=== PATIENT | female | born 1950 | race Caucasian/White ===

== ENCOUNTER 2016-10-22 07:26 | Emergency (ER) | payer OTHER ==
[~2016-10-22] VITALS: Wt 64.0 kg
[~2016-10-22 07:26] MED LIST: 'PARAFON FORTE500 M1 PO; ANTIBIOTIC O500 U/GM TP; CLARITIN10 MG PO; HYDROCHLOROTHIA25 MG PO; HYDROCODONE BIT1 T11 PO; KEFLEX500 MG PO; LOPRESSOR25 MG PO; MEDROL DOSEPAK4 MG PO; NADOLOL40 MG PO; NAPROSYN500 MG PO; NOVOLIN 701 UNIT/0.0 SC; NOVOLIN 70100 UNIT/1 SC; OMEPRAZOLE20 MG PO; ULTRAM50 MG PO; VICODIN 5/500 505 MG PO
[2016-10-22 07:45] LABS: BASO % 0.7 % (0.0-1.0); EOS % 1.4 % (1.0-4.0); HEMATOCRIT 35.4 % (37.0-47.0); HEMOGLOBIN 11.8 g/dl (12.0-16.0); LYMPH # 0.6 10*3/uL (1.3-4.4); LYMPH % 21.4 % (27.0-41.0); MEAN CELL VOLUME 99.7 fl (81.0-99.0); MEAN CORPUSCULAR HGB 33.2 pg (27.0-31.0); MEAN CORPUSCULAR HGB CONC 33.3 g/dl (33.0-37.0); MEAN PLATELET VOLUME 12.3 fl (9.6-12.3); MONO # 0.3 10*3/uL (0.1-1.0); MONO % 8.8 % (3.0-9.0); NEUT # 1.9 10*3/uL (2.3-7.9); PLATELET COUNT AUTOMATED 55 10*3/uL (130-400); RED BLOOD COUNT 3.55 10*6/uL (4.10-5.10); RED CELL DISTRI WIDTH 13.9 % (0-14.5); WHITE BLOOD COUNT 2.9 10*3/uL (4.8-10.8)
[2016-10-22 07:57] LABS: INTERNATIONAL NORM RATIO 1.2 (2.0-3.5); PROTHROMBIN TIME 13.4 SECONDS (9.0-12.4)
[2016-10-22 08:00] LABS: ALBUMIN 2.3 gm/dl (3.1-4.5); ALKALINE PHOSPHATASE 227 U/L (45-117); BILIRUBIN, TOTAL 0.9 mg/dl (0.2-1.0); BUN 12 mg/dl (7-24); CARBON DIOXIDE 27 mmol/L (21-32); CHLORIDE 105 mmol/L (98-107); EST GLOM FILT AFRICAN AMERICAN > 60 ml/min; GLUCOSE 214 mg/dL (65-99); POTASSIUM 3.5 mmol/L (3.5-5.1); SGOT/AST 103 IU/L (3-35); SGPT/ALT 53 U/L (12-78); SODIUM 141 mmol/L (136-145); TOTAL PROTEIN 7.7 gm/dL (6.4-8.2)
== END 2016-10-22 10:21 | disposition short-term general hospital (02) ==
LOC: ED 07:26
PROVIDERS: Emergency Medicine
DX: S72.141A Displaced intertrochanteric fracture of right femur, initial encounter for closed fracture (principal); S52.591A Other fractures of lower end of right radius, initial encounter for closed fracture; Z88.2 Allergy status to sulfonamides; Z79.899 Other long term (current) drug therapy; W01.0XXA Fall on same level from slipping, tripping and stumbling without subsequent striking against object, initial encounter; Y93.89 Activity, other specified; Y92.89 Other specified places as the place of occurrence of the external cause; Y99.8 Other external cause status

== ENCOUNTER → 2016-11-11 | Outpatient (CLI) | payer OTHER ==
[~2016-11-11] MED LIST changes: +BISACODYL10 MG RC; +DOCUSATE SODIU100 M2 PO; +GLYCOLAX119 GM PO; +HUMALOG100 U/ML SC; +HUMULIN 70100 UNIT/1 SQ; +LASIX40 MG PO; +MILK OF MA400 MG/51 PO; +NOVOLOG 70/30 M10 ML SC; +NOVOLOG MI100 UNIT/1 SQ; +OYSTERCAL-D 5001 TAB PO; +VITAMIN D1000 IU PO
[2016-11-11 15:15] VITALS: BP 109/31
[2016-11-11 15:30] VITALS: BP 105/47
[2016-11-11 15:45] VITALS: BP 104/50
[2016-11-11 16:00] VITALS: BP 102/46
[2016-11-11 16:16] VITALS: BP 114/51
[2016-11-11 17:15] VITALS: BP 108/54
== END | disposition home or self-care (01) ==
LOC: TRNFUSION 10:19 → SDC 10:19 → TRNFUSION 11:34 → EDSTATUS 11-17 11:34
DX: D64.9 Anemia, unspecified (principal)

== ENCOUNTER 2016-11-13 09:08 | Inpatient (IN) | payer OTHER ==
[~2016-11-13] VITALS: Ht 165.1 cm; Wt 73.1 kg
[2016-11-13] VITALS (15 sets, daily range): BP systolic 95–157; BP diastolic 37–74
--- NOTE | ~2016-11-13 | WRIGHTHP ---
[place], [place] PATIENT HISTORY AND PHYSICAL EXAM [id number] UN[facility] #: [id number] ROOM: [place] [address] DOCTOR: TONY CASTILLO MD BIRTHDATE: [birth year] DOS: 11/13/2016 The patient is a 65-year-old female with past medical of chronic hepatitis C with advanced liver cirrhosis and esophageal varices and 2 episodes of upper GI bleed in the last 7 years according to the patient. DIAGNOSES: 1. Recent fracture of the right wrist and right femur status post ORIF of the right femur. The patient was recuperating at the [place] [facility]. 2. History of benign essential hypertension. 3. Type 2 diabetes mellitus, insulin requiring. 4. History of thrombocytopenia and hepatitis C related to blood transfusion in 1972. HISTORY OF PRESENT ILLNESS: The patient was at the [place] [facility] recuperating from her right femur fracture status post ORIF and the right wrist fracture when she had episode of vomiting blood and was sent to the Emergency Department. After coming to the Emergency Department, the patient has had 2 episodes of dark stools with some blood in them. The patient was seen in the Emergency Department. The Emergency Department directly contacted Dr. Obando, the thread milling machine set up operator, who was in the operation room and he took patient directly from the Emergency Room to the operation room for an EGD where he found esophageal varices and upper GI bleed and distal esophageal ulcers, but he was unable to stop the bleeding and transferred the patient to ICU to admit under my care and 6 units of platelets were ordered by him and fresh frozen plasma along with packed cells. The patient had poor peripheral IV access and there was no one available at [facility] to place a central line for better IV access. The patient was moved to the ICU and she has received fresh frozen plasma as well as she is receiving the platelets and blood is still pending for the peripheral IV line. Stat consult was obtained with General Surgery surgeon, Dr. Keita who recommended that patient should be moved to a tertiary care center. A call was placed to [facility] who could not accept the patient because of patient's medical insurance. I placed a second call to [facility] who accepted the patient and planning to fly her to [facility] for further care. The patient is without chest pain, without shortness of breath. No other GI or urinary symptoms. Apparently, the patient was also started on Coumadin sometime earlier and her INR went as high as 8 and has gradually come down to 3.7, which was checked in the ER today. The patient's potassium level was also found to be low at 3.2 and ammonia level elevated at 59. Hemoglobin was 7.8 with a hematocrit of 24. The patient is awake, alert and oriented, not complaining of any chest pains, shortness of breath, any other GI or urinary symptoms. REVIEW OF SYSTEMS: LUNGS: No increasing shortness of breath or wheezing. GASTROINTESTINAL: The patient with history of vomiting blood and having also blood and dark colored stools recently. [place], [place] PATIENT HISTORY AND PHYSICAL EXAM NAME: MARINA LEÓN UNIT #: [id number] ROOM: [place] [address] DOCTOR: TONY CASTILLO MD BIRTHDATE: [birth year] CARDIOVASCULAR: No chest pains or palpitations. FAMILY HISTORY: Noncontributory. SOCIAL HISTORY: Denies smoking cigarettes, alcohol or any drug abuse. FAMILY HISTORY: Noncontributory. MEDICATIONS: Present management is propranolol 10 mg every 6 hours, which is on hold and sliding scale of regular insulin with sugar checks every 6 hours. The patient is on Sandostatin infusion, IV Protonix 40 mg twice a day. Two units of packed cells have been ordered. The patient already received fresh frozen plasma and 6 units of platelets, which is being transfused at present time and helicopter is coming in 5 minutes to take the patient to [facility]. PHYSICAL EXAMINATION: GENERAL: Alert and oriented x3. VITAL SIGNS: Blood pressure 102/38, heart rate of 114 beats per minute, breathing 18 times per minute and 99.2 degrees Fahrenheit. HEENT AND NECK: Extraocular movements are intact. Sclerae are anicteric. Oral mucosa is moist and clean. No obvious facial weakness. Neck is supple without any lymphadenopathy. No thyromegaly. No JVD. No carotid arterial bruits. LUNGS: Clear to auscultation. No wheezing. No rhonchi. CARDIOVASCULAR SYSTEM: Heart rate is regular in rate and rhythm. S1 and S2 normally audible. No significant murmur or any other abnormal cardiac sounds. ABDOMEN: Soft, nontender. No obvious organomegaly. Bowel sounds are present. No obvious herniation. EXTREMITIES: Without significant cyanosis or edema. Warm to touch. CENTRAL NERVOUS SYSTEM: Alert and oriented x3. Cranial nerves II-XII are intact. Speech is normal. The patient is able to move all extremities. Normal muscle strength. Deep tendon reflexes are equal on both sides. Plantars were downgoing. IMPRESSION: 1. The patient with acute upper GI bleed from esophageal varices status post EGD with poor IV access, has already received fresh frozen plasma and platelets and waiting for blood transfusion, also given normal saline. The patient is presently on octreotide drip infusion and being followed closely in the ICU and arrangements being made to transfer her to [facility]. A stat consult in place with surgeon, Dr. Keita. 2. History of chronic hepatitis C with liver cirrhosis and esophageal varices. 3. Elevated INR to 3.7 with previous history of taking Coumadin. 4. History of benign essential hypertension, presently hypotensive and tachycardic, apparently from blood loss. 5. Type 2 diabetes mellitus. The patient was started on regular insulin sliding scale with every 6-hour blood sugar check, last blood sugar was at 140. 6. Chronic thrombocytopenia, apparently related to liver cirrhosis and portal hypertension and hypersplenism. The patient is status post platelet transfusion. 7. Two hours of time spent in patient management. [place], [place] PATIENT HISTORY AND PHYSICAL EXAM [facility]: [facility] [id number] UNIT #: [id number] ROOM: [place] [address] DOCTOR: TONY CASTILLO MD BIRTHDATE: [birth year] TONY CASTILLO MD CM:HISPHYS:PATIENT HISTORY AND PHYSICAL EXAMINATION 16 4 TONY CASTILLO MD 11/14/16134 interface
--- NOTE | ~2016-11-13 | O ---
[place], [place] OPERATIVE NOTE NAME: MARINA LEÓN UNIT #: [id number] ROOM: [place] [address] DOCTOR: JOE LOULISAHEREFORDTREVIN BIRTHDATE: [birth year] DOS: HISTORY OF PRESENT ILLNESS: This is a 65-year-old patient who presented with chief complaint of GI bleed, hematemesis to the Emergency Room. The patient has a history of cirrhosis. We were concerned about the esophageal varicosity and bleed, ____. It was found that the patient has had previous transfusions and previous recent admissions. PROCEDURE: Today's procedure part of investigation is panendoscopy. PREMEDICATION: Versed and Diprivan. SCOPE: Olympus forward-viewing gastroscope Q10 video. REPORT: After putting the patient in the left lateral position and after application of lubricant to the scope, the scope was introduced. Thereafter, under direct visualization, I advanced through the length of the esophagus without difficulty. Esophagus cervicothoracic distally carefully examined. Gastric pouch was entered. There is 3+ esophageal varicosity extending from esophagogastric junction to thoracic esophagus. At the distal esophagus, there is an ulceration suspected to have been ____ origin for upper GI bleed and hematemesis. Large blood clot in the proximal gastric pouch was identified. Duodenal bulb, second and third part within normal limits. Scope was withdrawn after photographic series and inspection of the area. We could not provide any therapeutics, injection or band ligation due to the fact of prolonged INR. This is going to be done and re-approached. The patient extubated and tolerated the procedure well. IMPRESSION: Esophageal varicosity, upper GI bleed, distal esophageal ulcers, history of cirrhosis, history of portal hypertension, history of thrombocytopenia, history of recent prolonged INR and correction. PLAN AND DISCUSSION: This patient requires to be transferred to ICU, a unit of 6 pack platelet is going to be given, fresh frozen plasma is going to be given, vitamin K is going to be supplemented, followup is going to be done, the patient is going to be started on Sandostatin drip, PPI management, antiemetics, corrections and re-approach for future esophageal varicosity band ligation. [place], [place] OPERATIVE NOTE NAME: MARINA LEÓN UNIT #: [id number] ROOM: [place] [address] DOCTOR: JOE LOU,SALAS BIRTHDATE: [birth year] SALAS DIAZ MD CM:OPRECORD:OPERATIVE NOTE 1422 45 SALAS DIAZ MD 11/13/162045 interface
--- NOTE | ~2016-11-13 | CON ---
[place], [place] REPORT OF CONSULTATION NAME: MARINA LEÓN UNIT #: [id number] ROOM: [place] [address] DOCTOR: JOE LOULISAKEYANA BIRTHDATE: [birth year] DOS: 11/13/2016 HISTORY OF PRESENT ILLNESS: A 65-year-old patient who has presented from senior care with hemetemesis, undergoing investigation. This patient is status post right wrist and right hip surgery in mid October this year. The patient was found to have symptomatology with drop in H and H. The patient is status post a unit of transfusion a couple days ago and sent home and admitted now for reassessment. I was called from the Emergency Room with the above concerns. PAST MEDICAL HISTORY: Hepatitis C, GI bleed, drop in H and H, hypertension, esophageal varicosity, diabetes mellitus, portal hypertension, and cirrhosis. SOCIAL HISTORY: Nonsmoker, nonalcohol consumer. ALLERGIES: SULFA AND LATEX. FAMILY HISTORY: Noncontributory. PAST SURGICAL HISTORY: Report status post hip fracture, wrist repair. REVIEW OF SYSTEMS: In general, HEENT: Denies double vision, blurred vision. RESPIRATORY: Denies shortness of breath. CARDIOVASCULAR: Denies chest pain. DIGESTIVE SYSTEM: Hematemesis. PHYSICAL EXAMINATION: VITAL SIGNS: Stable. Very tachycardic at 120, a loud systolic murmur; however, alert. HEENT: Normocephalic, nontraumatic. Mouth and buccal mucosa benign. NECK: Supple, no thyromegaly, no cervical lymphadenopathy. CHEST: Symmetric anatomy, equal expansion. No wheeze, no rhonchi. HEART: Tachycardic loud systolic murmur. ABDOMEN: Soft. No hepato-organomegaly. Bowel sounds present. EXTREMITIES: 2+ pedal edema on right side, 1+ on left side. NEUROLOGIC: Alert, oriented to time, place, person. No encephalopathy. No asterixis. IMPRESSION: Drop in H and H, hematemesis, cirrhosis, portal hypertension, esophageal varicosities. LABORATORY DATA: Records reviewed. INR on 11/09 has been 6.6, PT of 79, H and H of 7 and 23 on that day and repeated reassessment of the labs. Thrombocytopenia with platelets [place], [place] REPORT OF CONSULTATION NAME: MARINA LEÓN UNIT #: [id number] ROOM: [place] [address] DOCTOR: JOE LOU,SALAS BIRTHDATE: [birth year] of 61. Today's labs, H and H 7 and 23 with platelets of 69 and she tells me she is status post transfusion. INR 3.5 today. Comprehensive metabolic panel, BUN and creatinine 55 and 1.2, potassium 3.2, bilirubin 3.2, alkaline phosphatase 210, all has been recognized. We are concerned about the history of hematemesis in view of cirrhosis, portal hypertension, esophageal varicosities and previous bleeding could have been due to the prolonged INR and thrombocytopenia. We are going to have a diagnostic endoscopy for assessment. SALAS DIAZ MD CM:CONSTR:REPORT OF CONSULTATION 1336 11/14/16 1136 interface
[~2016-11-13 09:08] MED LIST changes: -BISACODYL10 MG RC; -DOCUSATE SODIU100 M2 PO; -GLYCOLAX119 GM PO; -HUMALOG100 U/ML SC; -HUMULIN 70100 UNIT/1 SQ; -LASIX40 MG PO; -MILK OF MA400 MG/51 PO; -NOVOLOG 70/30 M10 ML SC; -NOVOLOG MI100 UNIT/1 SQ; -OYSTERCAL-D 5001 TAB PO; -VITAMIN D1000 IU PO
[2016-11-13 09:54] LABS: BASO % 0.2 % (0.0-1.0); EOS % 0.6 % (1.0-4.0); HEMATOCRIT 25.7 % (37.0-47.0); HEMOGLOBIN 8.4 g/dl (12.0-16.0); LYMPH # 0.6 10*3/uL (1.3-4.4); MEAN CORPUSCULAR HGB 32.7 pg (27.0-31.0); MEAN CORPUSCULAR HGB CONC 32.7 g/dl (33.0-37.0); MEAN PLATELET VOLUME 10.6 fl (9.6-12.3); MONO # 0.6 10*3/uL (0.1-1.0); MONO % 8.7 % (3.0-9.0); NEUT # 5.1 10*3/uL (2.3-7.9); PLATELET COUNT AUTOMATED 96 10*3/uL (130-400); RED BLOOD COUNT 2.57 10*6/uL (4.10-5.10); RED CELL DISTRI WIDTH 23.4 % (0-14.5); WHITE BLOOD COUNT 6.4 10*3/uL (4.8-10.8)
[2016-11-13 10:01] LABS: INTERNATIONAL NORM RATIO 3.7 (2.0-3.5); PROTHROMBIN TIME 42.3 SECONDS (9.0-12.4)
[2016-11-13 10:09] LABS: ALBUMIN 1.6 gm/dl (3.1-4.5); BILIRUBIN, TOTAL 3.2 mg/dl (0.2-1.0); POTASSIUM 3.2 mmol/L (3.5-5.1); TOTAL PROTEIN 6.6 gm/dL (6.4-8.2)
[2016-11-13] MEDS ORDERED: MILK OF MA400 MG/51 PO (11:02)
[2016-11-13] MEDS ORDERED: LASIX40 MG PO ×2 (11:04→16:12)
[2016-11-13] MEDS ORDERED: VITAMIN D1000 IU PO (11:05)
[2016-11-13] MEDS ORDERED: OYSTERCAL-D 5001 TAB PO (11:05)
[2016-11-13] MEDS ORDERED: NOVOLOG MI100 UNIT/1 SQ (11:07)
[2016-11-13] MEDS ORDERED: HUMALOG100 U/ML SC (11:08)
[2016-11-13] MEDS ORDERED: BISACODYL10 MG RC (11:09)
[2016-11-13] MEDS ORDERED: GLYCOLAX119 GM PO (11:09)
[2016-11-13] MEDS ORDERED: DOCUSATE SODIU100 M2 PO (11:10)
[2016-11-13 15:40] LABS: HEMOGLOBIN 7.8 g/dl (12.0-16.0); IG # 0.1 10*3/uL (0.0-0.1); LYMPH # 0.6 10*3/uL (1.3-4.4); MEAN CELL VOLUME 101.7 fl (81.0-99.0); MEAN CORPUSCULAR HGB 33.1 pg (27.0-31.0); MEAN CORPUSCULAR HGB CONC 32.5 g/dl (33.0-37.0); MEAN PLATELET VOLUME 10.4 fl (9.6-12.3); MONO # 0.6 10*3/uL (0.1-1.0); MONO % 7.3 % (3.0-9.0); NEUT # 6.3 10*3/uL (2.3-7.9); NEUT % 83.8 % (47.0-73.0); PLATELET COUNT AUTOMATED 109 10*3/uL (130-400); RED BLOOD COUNT 2.36 10*6/uL (4.10-5.10); RED CELL DISTRI WIDTH 23.8 % (0-14.5); WHITE BLOOD COUNT 7.5 10*3/uL (4.8-10.8)
[2016-11-13] MEDS ORDERED: NOVOLOG 70/30 M10 ML SC (16:19)
[2016-11-13] MEDS ORDERED: HUMULIN 70100 UNIT/1 SQ (16:20)
== END 2016-11-13 21:47 | disposition short-term general hospital (02) | DRG 432 ==
LOC: ED 09:08 → EDHOLD 13:04 → SDC 13:23 → 4E 13:29 → ICCU 14:31
PROVIDERS: Internal Medicine; Nurse Practitioner Family
PROC: 30233N1 Transfusion of Nonautologous Red Blood Cells into Peripheral Vein, Percutaneous Approach (ICD-10-PCS; principal; 2016-11-13)
PROC: 0DJ08ZZ Inspection of Upper Intestinal Tract, Via Natural or Artificial Opening Endoscopic (ICD-10-PCS; principal; 2016-11-13)
PROC: 30233K1 Transfusion of Nonautologous Frozen Plasma into Peripheral Vein, Percutaneous Approach (ICD-10-PCS; principal; 2016-11-13)
PROC: 30233P1 Transfusion of Nonautologous Frozen Red Cells into Peripheral Vein, Percutaneous Approach (ICD-10-PCS; principal; 2016-11-13)
PROC: 30233R1 Transfusion of Nonautologous Platelets into Peripheral Vein, Percutaneous Approach (ICD-10-PCS; principal; 2016-11-13)
DX: K74.60 Unspecified cirrhosis of liver (principal); I85.11 Secondary esophageal varices with bleeding; D69.6 Thrombocytopenia, unspecified; K76.6 Portal hypertension; I10 Essential (primary) hypertension; E11.9 Type 2 diabetes mellitus without complications; B18.2 Chronic viral hepatitis C; D73.1 Hypersplenism; Z79.4 Long term (current) use of insulin

== ENCOUNTER 2017-09-06 19:16 | Inpatient (IN) | payer OTHER ==
[~2017-09-06] VITALS: Ht 165.1 cm; Wt 65.1 kg
--- NOTE | ~2017-09-06 | EKG ---
[place], [place] ELECTROCARDIOGRAM REPORT NAME: MARINA LEÓN UNIT #: [id number] ROOM: [place] [address] DOCTOR: ELIZABET LOU,KIMANI BIRTHDATE: [birth year] DOS: 09/08/2017 TIME: 12:06. IMPRESSION: 1. Sinus rhythm, sinus tachycardia. 2. Low voltage complex in the limb leads. 3. Possible old anteroseptal infarction. 4. Inferolateral ST-T changes, nondiagnostic. 5. Borderline prolonged QTc interval. KIMANI MCNEAL MD CM:EKGRPT:ELECTROCARDIOGRAM REPORT [id number] [id number] KIMANI MCNEAL MD
--- NOTE | ~2017-09-06 | CON ---
[place], [place] REPORT OF CONSULTATION NAME: MARINA LEÓN UNIT #: [id number] ROOM: [place] [address] DOCTOR: NINA RANGEL MD BIRTHDATE: [birth year] DOS: 09/07/2017 REASON FOR CONSULTATION: Acute kidney injury. HISTORY OF PRESENT ILLNESS: The patient is a 66-year-old female. She has a history of diabetes and apparent cirrhosis of the liver. I am not clear of the details. There is report she has a history of hepatitis C on the notes. The patient apparently was found lethargic by her neighbor and was found to have a low blood glucose level. She came to the hospital. She had chest x-ray, which showed pneumonia and she was also tachycardic. The patient was hypotensive and started on pressors as well. Her initial creatinine was elevated at 2.2. Seems her baseline has been somewhere under 1 on review of the old records. The patient has had other abnormalities including lactic acidosis and elevated troponins. Her lactate was noted to be 14 and has been unchanged, slightly better for the past few reads. When I had seen her, she was awake, she was on nasal cannula. She was a poor historian. There was a gentleman at her bedside who stated that he has lived with her for 30 years. He did not give much history either. I asked specific questions and some of them were answered. There is no report of NSAID usage, nausea, vomiting or diarrhea. It does not appear that she has had any kidney disease at baseline. It seems she was started on broad spectrum antibiotics. She has a Nguyen catheter in place and has scant urine. Her creatinine was a little bit improved at 1.9. She has had low potassium levels and is being replaced p.r.n. ALLERGIES: Listed to SULFA DRUGS. MEDICATIONS: Reported home meds included hydrochlorothiazide, omeprazole, insulin, rifaximin, lactulose, Lasix, docusate, vitamin D, Lopressor. PAST MEDICAL HISTORY: 1. Cirrhosis with hepatitis C, details unclear. 2. Diabetes mellitus. 3. Esophageal varices. 4. Hypertension. 5. Chronic back pain. 6. Portal hypertension. 7. History of femoral fracture, requiring ORIF. 8. History of TIPS. 9. Wrist surgery. FAMILY HISTORY: Negative for chronic kidney disease, otherwise noncontributory. SOCIAL HISTORY: No tobacco or alcohol or illicit drugs were noted. REVIEW OF SYSTEMS: As per HPI, otherwise a 10-point review of systems was reviewed and was negative or limited. PHYSICAL EXAMINATION: VITAL SIGNS: Temperature 97.8, pulse ____, respiration 27, systolic blood pressures is in the 100s. [place], [place] REPORT OF CONSULTATION NAME: MARINA LEÓN UNIT #: [id number] ROOM: [place] [address] DOCTOR: NINA RANGEL MD BIRTHDATE: [birth year] GENERAL: She is lethargic, critically ill, lying in bed, in no acute respiratory distress. HEENT: Shows distended neck veins. Sclerae appeared anicteric. Mucous membranes appeared dry. Pharynx was clear. NECK: Supple. Trachea midline. There is no neck lymphadenopathy or thyromegaly. LUNGS: Diminished breath sounds. There is no appreciable wheeze. She is not using accessory muscles of respiration. HEART: Normal S1, S2. No rub, thrill or gallop. ABDOMEN: Soft, nontender. I could not appreciate organomegaly, rigidity, rebound or guarding. There was no CVA tenderness. EXTREMITIES: Had no edema. There was no lower extremity lymphadenopathy. Distal pulses were present. SKIN: Showed no overt rash. There was no petechia or purpura. Skin temperature was warm. NEUROLOGIC: She was lethargic, but she did follow commands, was moving her extremities. LABORATORY DATA: Blood culture was noted to be positive for gram-positive cocci in pairs and chains. Lactic acid was 12.1, ammonia less than 10. BUN 45, creatinine 1.9, sodium 137, potassium 3.2, CO2 of 18, calcium 7.1, phosphorus 3.0, magnesium 2.0. Hemoglobin 10.7, white count of 4.7, platelets of 54. IMPRESSION: 1. Acute kidney injury with a baseline creatinine that appears to be in the range of 0.8 to 1. The etiology seems most consistent with prerenal/acute tubular necrosis like picture due to hypotension and sepsis. Hepatorenal syndrome is a possibility, but seems less likely with the current scenario. 2. Bacteremia with likely pneumonia/sepsis. 3. Shock with septic shock. 4. History of cirrhosis and hepatitis C. 5. Anemia. 6. Supraventricular tachycardia with elevated troponin. 7. History of diabetes. 8. Lactic acidosis. PLAN: 1. Continue ongoing hemodynamic support. The patient appears volume depleted. Would continue with volume resuscitation. Would start a bicarbonate drip with D5 with 3 amps of bicarbonate at 75 mL per hour. 2. Continue to trend lactic acid levels. 3. Dose meds for current creatinine clearance. Follow vancomycin levels. 4. We will start salt poor albumin. 5. Currently I do not see any need for renal replacement therapy. 6. If the patient's condition shows any deterioration, I would recommend transfer to a tertiary care center. Thank you for this consultation. We will follow with you. [place], [place] REPORT OF CONSULTATION NAME: ROMELIAMARINA Wilma UNIT #: [id number] ROOM: [place] [address] DOCTOR: NINA RANGEL MD BIRTHDATE: [birth year] NINA RANGEL MD CM:CONSTR:REPORT OF CONSULTATION 1447 09/07/17 1752 interface
--- NOTE | ~2017-09-06 | EKG ---
[place], [place] ELECTROCARDIOGRAM REPORT NAME: MARINA LEÓN UNIT #: [id number] ROOM: [place] [address] DOCTOR: ELIZABET LOU,KIMANI BIRTHDATE: [birth year] DOS: 09/07/2017 TIME: 1423 hours IMPRESSION: 1. Sinus rhythm, sinus bradycardia. 2. Old anteroseptal infarction. 3. Baseline artifacts. 4. ST-T changes, nondiagnostic. 5. Borderline prolonged QTc interval. KIMANI MCNEAL MD CM:EKGRPT:ELECTROCARDIOGRAM REPORT 0839 0914 KIMANI MCNEAL MD
--- NOTE | ~2017-09-06 | CON ---
[place], [place] REPORT OF CONSULTATION NAME: MARINA LEÓN UNIT #: [id number] ROOM: [place] [address] DOCTOR: FRANCISCO JAVIER HERNÁNDEZ MD BIRTHDATE: [birth year] DOS: 09/07/2017 PULMONARY CRITICAL CARE EVALUATION AND MANAGEMENT CONSULTATION REQUESTED BY: Hospitalist service. REASON FOR CONSULTATION: Assessment of the acute pneumonia and sepsis. HISTORY OF PRESENT ILLNESS: This is a 66-year-old white female patient who is noted confused at this time as she was stating all the answers to the questions as 9. She has been brought to the hospital. The patient was admitted on 09/06/2017. The patient was presenting to the hospital of the hypoglycemia. The patient was found by the neighbor that the patient was taking insulin, but not eating any foods. She was given an amp of glucose. Glucose was administered in the Emergency Room upon arousal. The patient has been noted with abnormal chest x-ray showing evidence of pneumonia involving the right middle and the right lower lobe. The patient was noted with severe lactic acidosis as well. She has been noted in persistent confusional status. The patient was also noted with severe hypotension. She has been already administered large volume of fluid intravenously with fluid resuscitation and later on started on intravenous vasopressors. Currently, the patient has been getting Levophed about 6 mcg per kilogram per minute for the hypotension management. She has been noted awake and alert, but noted extremely confused and had difficulty to answer any questions. REVIEW OF SYSTEMS: Certainly cannot be completed because of that as well. All the other history of the patient is actually from review of the medical record, documentation by the other physician's notes for this, EMS, as well as the nursing notes. PAST MEDICAL HISTORY: Reported: 1. History of liver cirrhosis. 2. Type 2 diabetes mellitus. 3. History of esophageal varices. 4. History of hepatitis C. 5. Essential hypertension. 6. Type 2 diabetes mellitus. 7. Portal hypertension. 8. Low back problem with sciatica involving the left side. PAST SURGICAL HISTORY: Recorded as: 1. Fracture of the right femur. 2. Right hip ORIF. 3. TIPS. 4. Right wrist surgery previously. SOCIAL HISTORY: The patient was reported as nonsmoker, no history of alcohol use or illicit drug use. The remaining social history was unknown. FAMILY HISTORY: Reported as in the past the patient's father at the age of [place], [place] RE[facility]ATION [id number] UNIT #: [id number] ROOM: [place] [address] DOCTOR: JOANA LOPEZ MD,FRANCISCO JAVIER BIRTHDATE: 54 60 plus years due to unknown medical illnesses. Mother at 60 plus years of unknown medical illnesses. HOME MEDICATIONS: Reported as use of rifaximin, omeprazole, lactulose, 70/30 mixture of insulin use, and hydrochlorothiazide. The past hospitalization was noted short term for the patient in November 2016. At that time, the patient was noted with fracture of the right wrist, essential hypertension, and thrombocytopenia. PHYSICAL EXAMINATION: GENERAL: A 66-year-old white female who has been currently noted to be awake and alert, but confused. Her height was recorded by the nursing staff on admission 5 feet 5 inches, weight of 143 pounds, BMI 23.8. VITAL SIGNS: For the patient, which was recorded for the patient shows T max noted as 99.4 degree Fahrenheit to normal temperature, respiratory rate highest of 29 and lowest of 26. The heart rate was noted with sinus tachycardia to atrial fibrillation, previously cardiac dysrhythmias with maximum heart rate noted greater than 200. Currently, the patient is getting intravenous Cardizem drip. Heart rate noted normal sinus to mild tachycardia, heart rate 110 beats per minute. Blood pressure of the patient noted as lowest of 89/40 and blood pressure this morning was noted as 104/38. Pulse oxygen saturation of the patient recorded on room air 88% and on 3 liters nasal cannula 94% saturation. HEENT: Head was atraumatic. Eyes nonicterus. NECK: Supple. CARDIOVASCULAR: S1, S2 audible. Systolic murmur noted loud over the precordium. LUNGS: Moderate reduction of breath sounds in the lungs noted bilaterally with crackles in the right lung, scattered. ABDOMEN: Soft, flat, nontender. EXTREMITIES: Without any acute edema at the present time. MUSCULOSKELETAL: Without any acute deformities. SKIN: Visible skin, no lesions or rashes. CENTRAL NERVOUS SYSTEM: Cannot be examined because the patient was unable to understand the questions and follow the commands. LABORATORY DATA: Lactic acid on 09/06/2017 was noted at 14. Lactic acid noted variable for the patient, last of 9.5, this morning noted 11.6 again. CBC of the patient of 09/06/2017, WBC count normal, hemoglobin 10.9, hematocrit 30.9, platelet count of 50,000. CMP of the patient that was done on 09/06/2017, BUN 43, creatinine 2.25, glucose 148, sodium 135, potassium 3.1, total bilirubin 1.5, total protein of 6.3. AST was 67. Troponin 0.517. Second set of CK-MB and troponin for this patient was noted normal CK and MB. The troponin was 0.520. PT/INR for the patient noted this morning is 2.4. PTT of the patient noted as 34.5. The CBC of this morning, WBC count 4.7, hemoglobin 10.3, hematocrit 33.4, platelet count of 54,000, MCV of 109. CMP of the patient this morning, BUN 45, creatinine 1.90, glucose 122, potassium 3.3. Bilirubin was noted as 5.2, albumin 1.5, AST 71. Normal ALT and alkaline phosphatase. Blood culture of the patient, which were taken in the Emergency Room showed gram-positive cocci in pairs and chains in all of the 4 bottles from 2 blood tests. Arterial blood gas of the patient that I ordered this morning on 3 [place], [place] REPORT OF CONSULTATION NAME: MARINA LEÓN UNIT #: [id number] ROOM: [place] [address] DOCTOR: JOANA LOPEZ MD,[facility] BIRTHDATE: [birth year] liters, pH 7.31, pCO2 of 23, pO2 71.7. The intake of the patient noted at 3900 mL in the last 24 hours. The output was 852 mL. IMAGING STUDIES: Chest x-ray of the patient that was done, reviewed one view in the Emergency Room, left lung was noted clear with large consolidation present involving the right middle and the right lower lobes. IMPRESSION: 1. The patient who has been currently admitted to the hospital with acute severe sepsis with multiorgan involving acute kidney injury, worsening of the thrombocytopenia for this patient with past history of liver cirrhosis and severe hypotension. The patient was also noted with change in mental status related to the current severe acute sepsis as well. 2. Gram-positive bacteremia of the patient, most likely strep pneumonia would be considered very likely. 3. The patient with a history of known liver cirrhosis with hepatitis C occurred with the past blood transfusion with the history of varices for this patient, bleeding, portal hypertension, and had a TIPS procedure done previously. 4. Physical appearance of severe protein calorie malnutrition. 5. Thrombocytopenia, multifactorial related to the liver cirrhosis and sepsis. 6. Severe lactic acidosis of the patient secondary to current poor perfusion to the body organs. 7. Acute hypoxic respiratory failure secondary to all of the above. 8. Possibility of valvular stenosis as aortic stenosis would be considered. PLAN OF MANAGEMENT: The patient would be continued on oxygen supplementation as still noted with significant metabolic acidosis. The patient also noted in cardiac dysrhythmia, atrial fibrillation, currently heart rate noted in normal sinus rhythm with continuation of the intravenous Cardizem drip. Continue the vasopressor therapy to keep the mean arterial pressure of 65 or greater all the time. Monitor mental status closely. Continue to closely monitor the respiratory status as well. The patient does not require either BiPAP or mechanical ventilation at the time of the assessment. Monitor urinary output and vital organs closely as well. Continues with mild acute kidney injury for the patient, which is improving, related to the sepsis with improvement in kidney function is noted. Minimize the use of the excessive fluid to prevent the fluid overload for the patient as well. Vasopressor remains as mainstay of treatment for the management of the hypotension and nutrition support. Other supportive plan of management and care plan: The patient also has possibility of aortic stenosis on the patient's physical examination. The echocardiogram has been ordered, which will be done today. Total time spent in pulmonary critical care evaluation and management for the patient is 40 minutes. [place], [place] REPORT OF CONSULTATION NAME: ROMELIAMARINA A UNIT #: [id number] ROOM: [place] [address] DOCTOR: FRANCISCO JAVIER HERNÁNDEZ MD BIRTHDATE: [birth year] FRANCISCO JAVIER BERNARD MD CM:CONSTR:REPORT OF CONSULTATION 1030 09/08/17 0115 interface
[2017-09-06 19:16] VITALS: BP 120/69
[~2017-09-06 19:16] MED LIST changes: +BISACODYL10 MG RC; +DOCUSATE SODIU100 M2 PO; +GLYCOLAX119 GM PO; +HUMALOG100 U/ML SC; +HUMULIN 70100 UNIT/1 SQ; +LASIX40 MG PO; +MILK OF MA400 MG/51 PO; +NOVOLOG 70/30 M10 ML SC; +NOVOLOG MI100 UNIT/1 SQ; +OYSTERCAL-D 5001 TAB PO; +VITAMIN D1000 IU PO
[2017-09-06 20:04] VITALS: BP 128/44
[2017-09-06 20:08] LABS: HEMATOCRIT 33.9 % (37.0-47.0); HEMOGLOBIN 10.9 g/dl (12.0-16.0); MEAN CELL VOLUME 109.4 fl (81.0-99.0); MEAN CORPUSCULAR HGB 35.2 pg (27.0-31.0); MEAN CORPUSCULAR HGB CONC 32.2 g/dl (33.0-37.0); MEAN PLATELET VOLUME 12.1 fl (9.6-12.3); NUCLEATED RED BLOOD CELL 0.3 % (0.0-0.0); PLATELET COUNT AUTOMATED 50 10*3/uL (130-400); RED CELL DISTRI WIDTH 16.1 % (0-14.5); WHITE BLOOD COUNT 6.3 10*3/uL (4.8-10.8)
[2017-09-06 20:31] LABS: ALBUMIN 1.5 gm/dl (3.1-4.5); CREATININE 2.25 mg/dL (0.55-1.02); POTASSIUM 3.1 mmol/L (3.5-5.1); TOTAL PROTEIN 6.3 gm/dL (6.4-8.2)
[2017-09-06 20:33] LABS: BURR CELLS FEW; PLATELET SUFFICIENCY LOW (NORMAL); POLYCHROMASIA SLIGHT; TOTAL CELLS COUNTED 100 #CELLS
[2017-09-06 20:35] LABS: TROPONIN I 0.517 ng/ml (<0.045)
[2017-09-06 20:57] VITALS: BP 127/42
[2017-09-06 21:06] VITALS: BP 119/32
[2017-09-06 21:20] VITALS: BP 109/43
[2017-09-06] MEDS ORDERED: XIFAXAN550 MG PO (22:30)
[2017-09-06] MEDS ORDERED: LACTULOSE20 GM/30 M PO (22:31)
[2017-09-06 22:35] LABS: CKMB 3.9 ng/ml (0.5-3.6)
[2017-09-06 23:06] LABS: BILIRUBIN 2+ (NEGATIVE); BLOOD TRACE-INTACT (NEGATIVE); CLARITY SL CLOUDY (CLEAR); COLOR YELLOW (YELLOW); GLUCOSE TRACE (NEGATIVE); KETONE NEGATIVE (NEGATIVE); LEUKO ESTERASE NEGATIVE (NEGATIVE); NITRITE POSITIVE (NEGATIVE); SPECIFIC GRAVITY >= 1.030 (1.005-1.030); UROBILINOGEN 0.2 E.U./dl (0.2-1.0)
[2017-09-06 23:12] LABS: BACTERIA 2+
[2017-09-07] VITALS (86 sets, daily range): BP systolic 82–136; BP diastolic 0–87
[2017-09-07 02:22] LABS: INTERNATIONAL NORM RATIO 2.4 (2.0-3.5)
[2017-09-07 04:25] LABS: HEMATOCRIT 33.4 % (37.0-47.0); HEMOGLOBIN 10.7 g/dl (12.0-16.0); MEAN CELL VOLUME 109.2 fl (81.0-99.0); MEAN PLATELET VOLUME 11.9 fl (9.6-12.3); NUCLEATED RED BLOOD CELL 0.6 % (0.0-0.0); PLATELET COUNT AUTOMATED 54 10*3/uL (130-400); RED BLOOD COUNT 3.06 10*6/uL (4.10-5.10); RED CELL DISTRI WIDTH 16.1 % (0-14.5); WHITE BLOOD COUNT 4.7 10*3/uL (4.8-10.8)
[2017-09-07 04:42] LABS: ALBUMIN 1.5 gm/dl (3.1-4.5); CREATININE 1.9 mg/dL (0.55-1.02); POTASSIUM 3.2 mmol/L (3.5-5.1); TOTAL PROTEIN 6.3 gm/dL (6.4-8.2)
[2017-09-07 04:43] LABS: FREE T4 1.1 ng/dl (0.76-1.46)
[2017-09-07 04:47] LABS: PLATELET SUFFICIENCY LOW (NORMAL); POLYCHROMASIA SLIGHT; TOTAL CELLS COUNTED 100 #CELLS; TOXIC GRANULATION SLIGHT
[2017-09-07 04:48] LABS: THYROID STIM HORMONE (HS) 2.13 uIU/ml (0.358-4.75)
[2017-09-07 09:19] LABS: ABG HCO3 11.7 mmol/l (22-26); ABG O2 SATURATION 93.3 % (95-97); ARTERIAL BLOOD GAS PCO2 23.5 mmHg (35-45); ARTERIAL BLOOD GAS PH 7.318 (7.35-7.45); ARTERIAL BLOOD GAS PO2 71.8 mmHg (80-90)
[2017-09-07 09:20] LABS: ABG BASE EXCESS -12.8 mmol/L (-2.0-2.0)
[2017-09-07 11:08] LABS: VITAMIN D, 25-HYDROXY 10.8 ng/mL (30-100)
[2017-09-07 17:20] LABS: BILIRUBIN, DIRECT 3.8 mg/dL (0.0-0.2)
[2017-09-08] VITALS (7 sets, daily range): BP systolic 105–121; BP diastolic 39–47
[2017-09-08] MEDS ORDERED: CEFTRIAXON1 GM/50 ML IV (01:13)
[2017-09-08] MEDS ORDERED: VANCOMYCIN750 MG/151 IV (01:13)
[2017-09-08] MEDS ORDERED: ALBUMIN IV (01:13)
[2017-09-08] MEDS ORDERED: DUONEB 3 MG/3 ML3 M1 NEB (01:13)
[2017-09-08] MEDS ORDERED: TAMIFLU 75MG CA75 MG PO (01:13)
[2017-09-08] MEDS ORDERED: ZITHROMAX500 MG PO (01:13)
[2017-09-08] MEDS ORDERED: [UNRECOGNIZED DRUG - OTHER] IV (01:24)
[2017-09-12 09:07] LABS: MYCOPLASMA PNEUMONIAE IGG 102 U/mL (0-99); MYCOPLASMA PNEUMONIAE IGG <100 U/mL (0-99); MYCOPLASMA PNEUMONIAE IGM <770 U/mL (0-769)
== END 2017-09-08 02:27 | disposition short-term general hospital (02) | DRG 871 ==
LOC: ED 19:16 → EDHOLD 20:41 → ICCU 20:41
PROVIDERS: Emergency Medicine Emergency Medical Services; Hospitalist; Internal Medicine; Internal Medicine Critical Care Medicine
DX: A41.9 Sepsis, unspecified organism (principal); R65.21 Severe sepsis with septic shock; N17.0 Acute kidney failure with tubular necrosis; J96.01 Acute respiratory failure with hypoxia; E43 Unspecified severe protein-calorie malnutrition; G93.41 Metabolic encephalopathy; I85.10 Secondary esophageal varices without bleeding; D61.818 Other pancytopenia; J18.1 Lobar pneumonia, unspecified organism; D68.9 Coagulation defect, unspecified; E87.1 Hypo-osmolality and hyponatremia; K76.6 Portal hypertension; N39.0 Urinary tract infection, site not specified; I47.1 Supraventricular tachycardia; N13.30 Unspecified hydronephrosis; E11.649 Type 2 diabetes mellitus with hypoglycemia without coma; D69.6 Thrombocytopenia, unspecified; E86.0 Dehydration; K74.60 Unspecified cirrhosis of liver; M54.42 Lumbago with sciatica, left side; E87.6 Hypokalemia; E87.8 Other disorders of electrolyte and fluid balance, not elsewhere classified; I10 Essential (primary) hypertension; B18.2 Chronic viral hepatitis C; E11.65 Type 2 diabetes mellitus with hyperglycemia; D53.9 Nutritional anemia, unspecified; R74.0 Nonspecific elevation of levels of transaminase and lactic acid dehydrogenase [LDH]; G89.29 Other chronic pain; M54.9 Dorsalgia, unspecified; K80.20 Calculus of gallbladder without cholecystitis without obstruction; Z82.49 Family history of ischemic heart disease and other diseases of the circulatory system; Z88.2 Allergy status to sulfonamides; Z79.899 Other long term (current) drug therapy; Z87.81 Personal history of (healed) traumatic fracture; Z79.4 Long term (current) use of insulin; Z68.23 Body mass index [BMI] 23.0-23.9, adult